=== PATIENT | female | born 1945 | race Caucasian/White ===

== ENCOUNTER 2019-12-23 01:10 | Outpatient (CLI) | payer MEDICARE, BC, SELFPAY ==
[2019-12-23 16:30] LABS: SARS-CoV-2 RNA PCR Negative
== END 2019-12-23 01:11 | disposition home or self-care (01) ==
LOC: ANHCOVIDDT 01:10
PROVIDERS: PCP Family Medicine; Visit Provider Internal Medicine Gastroenterology
DX: Z01.812 Encounter for preprocedural laboratory examination (principal); Z20.828 Contact with and (suspected) exposure to other viral communicable diseases
CPT/HCPCS: 87635; C9803; U0003

== ENCOUNTER 2019-12-26 02:35 | Day surgery (SDC) | payer MEDICARE, BC, SELFPAY ==
[2019-12-19 14:18] VITALS: BMI 34.0
[2019-12-26 06:55] VITALS: BP 141/76; PULSE 67; RESP 18; TEMP 36.2; O2SAT 98; BMI 33.7
[2019-12-26 07:05] LABS: Glucose Point of Care 127 (65-105)
[2019-12-26] MEDS: LACTATED RINGERS 1,000 ML 150 ML IV CONT (07:09)
--- NOTE | 2019-12-26 07:26 | WPDANESEPPF ---
Anes - Initial Pre Proc Eval Procedure: Operation Date: 12/26/19 08:00 Proposed Procedures p Screening Colonoscopy - Maximino Thomson MD Date/Time: 12/26/19 07:26 Surgeon: Maximino Thomson MD Pre Op Diagnosis: Hx Colon Polyps Patient Data Age: 74 Gender: F Height: 5 ft 3 in Weight: 86.3 kg Last Vital Signs Temp 97.1 F L 12/26/19 06:55 Pulse 67 12/26/19 06:55 Resp 18 12/26/19 06:55 BP 141/76 H 12/26/19 06:55 Pulse Ox 98 12/26/19 06:55 Allergies Allergy/AdvReac Type Severity Reaction Status Date / Time neomycin Allergy Intermediate Rash Verified 12/26/19 06:52 atorvastatin Allergy Unknown Unknown Verified 12/26/19 06:52 bacitracin Allergy Unknown Rash Verified 12/26/19 06:52 ezetimibe Allergy Unknown Unknown Verified 12/26/19 06:52 polymyxin B Allergy Unknown Rash Verified 12/26/19 06:52 venlafaxine Allergy Unknown Unknown Verified 12/26/19 06:52 Home Medications Medication Instructions Recorded Confirmed Type fluticasone furoate 100 1 inhalation INHALATION DAILY #90 06/27/19 12/19/19 Rx mcg/actuation blister powder for each inhalation propranolol 60 mg capsule,24 120 mg PO DAILY #180 cap 06/27/19 12/19/19 Rx hr,extended release montelukast 10 mg tablet 10 mg PO DAILY #30 tablet 08/16/19 12/19/19 Rx pantoprazole 40 mg tablet,delayed 40 mg PO QAM #90 tablet 11/17/19 12/19/19 Rx release albuterol sulfate 1 inh INHALATION QID PRN 12/19/19 12/19/19 History aspirin [Adult Low Dose Aspirin] 81 mg PO DAILY 12/19/19 12/19/19 History dapagliflozin [Farxiga] 5 mg PO DAILY 12/19/19 12/19/19 History lisinopril 2.5 mg PO DAILY 12/19/19 12/19/19 History metformin 500 mg PO DAILY 12/19/19 12/19/19 History pravastatin 80 mg PO DAILY 12/19/19 12/19/19 History Laboratory Tests 12/26/19 07:01 POC Capillary Glucose 127 mg/dl H mg/dl (65-105) Patient hx anesthesia problems: none Family hx anesthesia problems: none PMFSH Past Medical History Medical History (Updated 12/26/19 @ 07:26 by Rob Valdes MD) Atherosclerotic heart disease of [place] coronary artery with angina pectoris Chronic obstructive pulmonary disease, unspecified Diabetes Hyperlipidemia Family History Family History (Updated 10/19/15 @ 23:19 by DOCTOR UNKNOWN) Sibling Family history of premature coronary heart disease Hypertension Family history of diabetes mellitus in first degree relative Grandparent Carcinoma of colon Diabetes mellitus Other Family history of malignant neoplasm of breast Social History Social History Smoking packs per day: 1 Smoking cigarettes per day: 20.0 Years smoked: 21 Smoking pack-years: 21.00 Smoking status: Never smoker Tobacco type: cigarettes Second hand tobacco smoke exposure: No Alcohol intake: never Substance use: former Living arrangements: alone Gender identity (if verbalized by the patient): Female Spiritual care concerns: No Anes - Eval Final PreProcedure Day of Procedure 12/26/19 07:26 Patient weight: obese Heart: regular rate and rhythm Lungs: clear to auscultation Airway: Mallampati scale class II Neurological: alert and oriented Last oral intake: >/= 8 hours ASA classification: III Emergent: no Anesthetic plan: proceed Anesthesia type and monitoring: general GIVS and standard monitoring Informed Consent: The patient's anesthetic plan and its attendant risks and benefits were discussed with the patient/family/POA. Questions were solicited and answers provided to the satisfaction of the patient/family/POA.
--- NOTE | 2019-12-26 07:51 | WPDGICN ---
Assessment and Plan Assessment and plan (1) History of colon polyps: Code(s): Z86.010 - Personal history of colonic polyps Status: Acute Assessment and Plan: Patient is a colon polyps in several prior endoscopies. Most recent exam was 5 years ago. She does have a grandparents to had colon cancer. Plan is for colonoscopy now. Follow-up will be determined by findings at time of endoscopy. GI Consult Note Consult date/time: 12/26/19 07:51 HPI: Amparo Palacios is a 74 year old female Seen in evaluation at the request of Dr. Toney Davis. Patient presents for follow-up colonoscopy. She has had colon polyps in several instances in the past. Last colonoscopy was 5 years ago. Her current weight appetite bowel movements are normal. She denies abdominal pain. Family history is significant that her grandmother had colon cancer. Patient currently denies any blood in her stools. Her weight has remained stable. She denies abdominal pain. Review of Systems Review of Systems: All systems reviewed & are unremarkable except as noted in HPI and below PMFSH Past Medical History Medical History Atherosclerotic heart disease of [place] coronary artery with angina pectoris Chronic obstructive pulmonary disease, unspecified Diabetes Hyperlipidemia Family History Family History (Updated 10/19/15 @ 23:19 by DOCTOR UNKNOWN) Sibling Family history of premature coronary heart disease Hypertension Family history of diabetes mellitus in first degree relative Grandparent Carcinoma of colon Diabetes mellitus Other Family history of malignant neoplasm of breast Social History Social History Smoking packs per day: 1 Smoking cigarettes per day: 20.0 Years smoked: 21 Smoking pack-years: 21.00 Smoking status: Never smoker Tobacco type: cigarettes Second hand tobacco smoke exposure: No Alcohol intake: never Substance use: former Living arrangements: alone Gender identity (if verbalized by the patient): Female Spiritual care concerns: No Meds Home Medications and Allergies Home Medications Medication Instructions Recorded Confirmed Type fluticasone furoate 100 1 inhalation INHALATION DAILY #90 06/27/19 12/19/19 Rx mcg/actuation blister powder for each inhalation propranolol 60 mg capsule,24 120 mg PO DAILY #180 cap 06/27/19 12/19/19 Rx hr,extended release montelukast 10 mg tablet 10 mg PO DAILY #30 tablet 08/16/19 12/19/19 Rx pantoprazole 40 mg tablet,delayed 40 mg PO QAM #90 tablet 11/17/19 12/19/19 Rx release albuterol sulfate 1 inh INHALATION QID PRN 12/19/19 12/19/19 History aspirin [Adult Low Dose Aspirin] 81 mg PO DAILY 12/19/19 12/19/19 History dapagliflozin [Farxiga] 5 mg PO DAILY 12/19/19 12/19/19 History lisinopril 2.5 mg PO DAILY 12/19/19 12/19/19 History metformin 500 mg PO DAILY 12/19/19 12/19/19 History pravastatin 80 mg PO DAILY 12/19/19 12/19/19 History Allergies Allergy/AdvReac Type Severity Reaction Status Date / Time neomycin Allergy Intermediate Rash Verified 12/26/19 06:52 atorvastatin Allergy Unknown Unknown Verified 12/26/19 06:52 bacitracin Allergy Unknown Rash Verified 12/26/19 06:52 ezetimibe Allergy Unknown Unknown Verified 12/26/19 06:52 polymyxin B Allergy Unknown Rash Verified 12/26/19 06:52 venlafaxine Allergy Unknown Unknown Verified 12/26/19 06:52 Vital Signs Vital Signs - 24 hr 12/26/19 06:55 Temperature 97.1 F L Pulse Rate 67 Respiratory Rate 18 Blood Pressure 141/76 H Pulse Oximetry 98 Exam Narrative: Exam Narrative: Physical exam reveals Vital Signs to be stable. HEENT exam unremarkable. She is anicteric. Lungs are clear to auscultation and percussion. Heart is without murmur or extra sounds. Abdominal exam bowel sounds are present soft nontender with no organomegaly. Digital external rectal exam is normal.
[2019-12-26 08:28] VITALS: BP 103/56; PULSE 74; RESP 17; O2SAT 99
[2019-12-26 08:38] VITALS: BP 120/75; PULSE 70; RESP 13; O2SAT 99
[2019-12-26 08:48] VITALS: BP 119/61; PULSE 60; RESP 26; O2SAT 99
== END 2019-12-26 09:06 | disposition home or self-care (01) ==
PROVIDERS: PCP Family Medicine; Visit Provider Internal Medicine Gastroenterology
PROC: 0DJD8ZZ Inspection of Lower Intestinal Tract, Via Natural or Artificial Opening Endoscopic (ICD-10-PCS; CPT 45378; principal; 2019-12-26 08:00)
DX: Z12.11 Encounter for screening for malignant neoplasm of colon (principal); K64.8 Other hemorrhoids; K57.30 Diverticulosis of large intestine without perforation or abscess without bleeding; I25.119 Atherosclerotic heart disease of native coronary artery with unspecified angina pectoris; J44.9 Chronic obstructive pulmonary disease, unspecified; E11.9 Type 2 diabetes mellitus without complications; E78.5 Hyperlipidemia, unspecified; E66.9 Obesity, unspecified; Z68.33 Body mass index [BMI] 33.0-33.9, adult; D12.2 Benign neoplasm of ascending colon; Z80.0 Family history of malignant neoplasm of digestive organs; Z86.010 Personal history of colon polyps; Z87.891 Personal history of nicotine dependence
CPT/HCPCS: 45385; 88305; J2704; J7120

== ENCOUNTER 2020-01-09 17:36 | Outpatient (CLI) | payer MEDICARE, BC, SELFPAY ==
--- NOTE | ~2020-01-09 | CT_ITS ---
EXAMINATION: CT chest wo con EXAM DATE: 01/09/2020 18:12 INDICATION: R91.8 Other nonspecific abnormal finding of lung field. Abnormal chest x-ray. TECHNIQUE: Spiral CT of the chest without contrast. Axial, coronal and sagittal images were reviewe d. Coronal maximum intensity pixel images of chest reviewed. The dose-length product (DLP) for this examination was 242.10 mGy-cm. The exposure was tailored according to patient size (auto mA exposur e control), and iterative reconstruction (ASIR) was used as additional dose reduction technique. Comp arison is made to prior examination from 12/01/2018. FINDINGS: Several small right upper lobe nodular again identified, some unchanged. 2 in the perihila r region have slightly larger groundglass halo, now measuring about 5 mm. Still most likely postinfec tious. Additional 1 year follow-up low-dose chest CT. There is a goiter. There is mild emphysema. The re are no pleural or pericardial effusions. Tracheobronchial tree is patent. There is no mediasti nal, hilar or axillary lymphadenopathy. There is no pneumothorax. Heart normal in size. There is small sliding gastroesophageal hiatal hernia. There is hepatic steatosis. There is mild thoracic s pondylosis without osteoblastic or osteolytic lesions identified. IMPRESSION: 1. Several right upper lobe subcentimeter nodules, 2 of which have slightly larger groundglass halo. Probably postinfectious. Recommend additional one-year follow-up. 2. Mild emphysema. 3. Small hiatal hernia. 4. Hepatic steatosis. 5. Goiter. Reviewed, dictated and finalized at location [facility]. IMPRESSION: 1. Several right upper lobe subcentimeter nodules, 2 of which have slightly la rger groundglass halo. Probably postinfectious. Recommend additional one-year f ollow-up. 2. Mild emphysema. 3. Small hiatal hernia. 4. Hepatic steatosis. 5. Goiter.
== END 2020-01-09 17:37 | disposition home or self-care (01) ==
PROVIDERS: PCP Family Medicine; Visit Provider Physician Assistant Medical
DX: R91.8 Other nonspecific abnormal finding of lung field (principal); J43.9 Emphysema, unspecified; K44.9 Diaphragmatic hernia without obstruction or gangrene; K76.0 Fatty (change of) liver, not elsewhere classified; E04.9 Nontoxic goiter, unspecified
CPT/HCPCS: 71250

== ENCOUNTER → 2022-07-23 13:36 | Outpatient (CLI) | payer MEDICARE, BC, SELFPAY ==
--- NOTE | ~2022-07-23 | XR_ITS ---
EXAMINATION: XR knee RT min 4V DATE: 07/23/2022 14:03 INDICATION: Right knee injury. TECHNIQUE: 4 views of right knee including standing views were obtained. COMPARISON: None. FINDINGS: Bone alignment is normal. No fracture. There is moderate osteoarthritis of medial compartme nt and mild osteoarthritis of lateral and patellofemoral compartments. No knee joint effusion. IMPRESSION: 1. Moderate right knee osteoarthritis. Reviewed, dictated and finalized at location [facility].
== END ==
PROVIDERS: PCP Family Medicine; Visit Provider Nurse Practitioner Family
DX: S89.90XA Unspecified injury of unspecified lower leg, initial encounter (principal); X58.XXXA Exposure to other specified factors, initial encounter; M17.11 Unilateral primary osteoarthritis, right knee
CPT/HCPCS: 73564

== ENCOUNTER 2022-08-25 12:47 | Emergency (ER) | payer MEDICARE, BC, SELFPAY ==
[2022-08-25] VITALS (13 sets, daily range): BP systolic 90–121; BP diastolic 51–68; PULSE 86–95; RESP 18–22; TEMP 37.2; O2SAT 93–95
[2022-08-25 14:06] LABS: Basophils Percent Auto 0.3 % (0.2-1.2); Eosinophils Percent Auto 0.1 % (0-4.4); Hemoglobin 13.2 g/dL (12.0-15.0); Immature Granulocyte Absolute 0.02 K/mm3 (0.00-0.031); Immature Granulocyte Percent A 0.2 % (0-0.5); Lymphocytes Absolute Auto 0.94 K/mm3 (0.9-3.2); Lymphocytes Percent Auto 9.4 % (18.3-44.2); Mean Corpuscular Volume 90.9 fl (80-100); Mean Platelet Volume 9.3 fl (7.4-10.4); Monocytes Absolute Auto 0.8 K/mm3 (0.1-0.6); Monocytes Percent Auto 7.5 % (2.6-8.5); Neutrophils Absolute Auto 8.3 K/mm3 (1.3-6.7); Neutrophils Percent Auto 82.5 % (45.5-73.1); Platelet Count Result 191 k/mm3 (150-375); Red Cell Distribution Width 13.4 % (11.5-14.5)
[2022-08-25 14:22] LABS: Appearance Urine Cloudy (Clear); Bacteria Urine 2+ /hpf; Bilirubin Urine Negative (Negative); Blood Urine Negative (Negative); Color Urine Dark Yellow (Yellow); Glucose Urine UA Negative (Negative); Ketones Urine 2+ mg/dL (Negative); Leukocyte Esterase Ur 1+ LEU/UL (Negative); Need Manual Microscopic Reviewed; Nitrate Urine Negative (Negative); Protein Urine 1+ mg/dL (Negative); RBC Urine 0-2 /hpf (0-2); Specific Grav Ur 1.022 (1.001-1.035); Squamous Epithelial Cell Urine Moderate /hpf (Few); WBC Urine 21-50 /hpf; pH Urine 5.5 (5.0-9.0)
[2022-08-25 14:25] LABS: Add Urine Microscopic? YES
[2022-08-25 14:25] LABS: Alanine Aminotransferase 28 U/L (6-35); Albumin Level 4.1 g/dL (3.5-5.1); Alkaline Phosphatase 76 U/L (38-126); Anion Gap 7 mmol/L (8-16); Aspartate Amino Transferase 32 U/L (14-36); Bilirubin,Total 0.8 mg/dL (0.2-1.3); Blood Urea Nitrogen 12 mg/dL (7-17); Carbon Dioxide 28 mmol/L (22-30); Chloride 98 mmol/L (98-107); Estimated CRCL calculation 65 ml/min; Estimated Glomerular Filt Rate > 60; Glucose 119 mg/dL (65-110); Lipase 85 U/L (23-300); Potassium 3.6 mmol/L (3.4-5.0); Sodium 133 mmol/L (137-145)
--- NOTE | 2022-08-25 15:59 | ED.GENADULT ---
HPI - General Adult General Chief complaint: Nausea/Vomiting/Diarrhea Stated complaint: n/v/d after international travel Time Seen by Provider: 08/25/22 15:27 History of Present Illness HPI narrative: 76-year-old female presented to the emergency department for evaluation of nausea vomiting diarrhea. Patient recently returned from [place]. Patient states that she traveled that Thursday did not drink very much fluid. Patient started having the symptoms of nausea vomiting diarrhea on Thursday. Patient states she does not have any associate abdominal pain. Patient does report intermittent headache. Patient reports watery stool with no blood. Patient has had 2 episodes of emesis without blood. Patient does have prior history of cholecystectomy patient states she does have history of diverticular disease Related Data Home Medications Medication Instructions Recorded Confirmed aspirin 81 mg tablet,delayed 81 mg PO DAILY 12/19/19 08/11/22 release (Adult Low Dose Aspirin) lisinopril 5 mg tablet 2.5 mg PO DAILY 12/19/19 08/11/22 metformin 500 mg tablet 500 mg PO DAILY 12/19/19 08/11/22 glimepiride 2 mg tablet 2 mg PO QAM 09/09/21 08/11/22 semaglutide 0.25 mg or 0.5 mg (2 0.5 mg subcut WEEKLY 08/11/22 08/11/22 mg/3 mL) subcutaneous pen injector (Ozempic) Allergies Allergy/AdvReac Type Severity Reaction Status Date / Time neomycin Allergy Intermediate Rash Verified 08/25/22 12:48 atorvastatin Allergy Unknown Unknown Verified 08/25/22 12:48 bacitracin Allergy Unknown Rash Verified 08/25/22 12:48 ezetimibe Allergy Unknown Unknown Verified 08/25/22 12:48 polymyxin B Allergy Unknown Rash Verified 08/25/22 12:48 venlafaxine Allergy Unknown Unknown Verified 08/25/22 12:48 Review of Systems Review of Systems: All systems reviewed & are unremarkable except as noted in HPI and below PMFSH Past Medical History Medical History Atherosclerotic heart disease of [place] coronary artery with angina pectoris BMI 32.0-32.9,adult BMI 33.0-33.9,adult Chronic obstructive pulmonary disease, unspecified Diabetes Hyperlipidemia Family History Family History Sibling Family history of premature coronary heart disease Hypertension Family history of diabetes mellitus in first degree relative Grandparent Carcinoma of colon Diabetes mellitus Father Acute myocardial infarction Mother No problems noted. 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 HEAD: normocephalic, atraumatic. EYES: PERRLA/EOMI, conjunctivae clear. NOSE: Normal no drainage NECK: Supple. No adenopathy, no masses. RESPIRATORY: Airway patent, respirations nonlabored. Clear to auscultation bilaterally, no rales, rhonchi, wheezing. CARDIOVASCULAR: Regular rate and rhythm without murmurs rubs or gallops. ABDOMINAL: Soft, nontender, nondistended, normal bowel sounds MUSCULOSKELETAL: Moves all extremities. Strength/ROM intact, No edema, No calf tenderness. NEURO: Alert. Cranial nerves II through XII intact. Grossly intact SKIN: Warm, dry. Normal Color C
[2022-08-25] MEDS: ONDANSETRON INJ 4 MG/2 ML VIAL IV PUSH (16:04)
[2022-08-25] MEDS: SODIUM CHLORIDE 0.9% IV 1,000 ML 999 ML IV CONT (16:05)
[2022-08-25 16:27] LABS: Influenza A QL RT-PCR Negative (Negative); Influenza B QL RT-PCR Negative (Negative); RSV RNA, RT-PCR Negative (Negative); SARS-CoV-2 RNA PCR Negative (Negative)
== END 2022-08-25 18:12 | disposition home or self-care (01) ==
PROVIDERS: Emergency Medicine; Emergency Provider Emergency Medicine; PCP Family Medicine
DX: R11.2 Nausea with vomiting, unspecified (principal); R19.7 Diarrhea, unspecified; E11.9 Type 2 diabetes mellitus without complications; I25.10 Atherosclerotic heart disease of native coronary artery without angina pectoris; J44.9 Chronic obstructive pulmonary disease, unspecified; E78.5 Hyperlipidemia, unspecified; Z87.891 Personal history of nicotine dependence; Z79.899 Other long term (current) drug therapy; Z79.84 Long term (current) use of oral hypoglycemic drugs; Z79.82 Long term (current) use of aspirin; Z20.822 Contact with and (suspected) exposure to COVID-19
CPT/HCPCS: 36415; 80053; 81001; 83690; 85025; 87086; 87088; 87637; 96361; 96374; 99284; J2405; J7030

== ENCOUNTER → 2022-10-06 08:14 | Outpatient (CLI) | payer MEDICARE, BC, SELFPAY ==
--- NOTE | ~2022-10-06 | CT_ITS ---
EXAMINATION: CT chest high resolution w con DATE: 10/06/2022 08:44 INDICATION: Solitary pulmonary nodule TECHNIQUE: Computed tomography (CT) of the chest was performed with 75 CC Omnipaque 350 intravenous c ontrast. Automated exposure control and iterative reconstruction technique were employed. Exam dose: 327.35 mGy-cm total exam DLP. COMPARISON: 01/09/2020 CT chest FINDINGS: There are moderate emphysematous changes of the lungs. There are 2 right perihilar right upper lobe irregular soft tissue masses, one measuring up to 1.9 cm , the other approximately 2.1 x 2.5 cm. These are most likely a malignant. Little interval change of a 2 mm nodular density in the superior segment of the right lower lobe (ser ies 4 image 34) compared to 01/09/2020. Minimal right hilar ramon prominence. Mild prominence of the subcarinal lymph nodes. No enlarged medi astinal lymph nodes are noted otherwise. Consider PET/CT imaging for further evaluation. Heart size is normal. There is prominent calcification of the left anterior descending coronary arter y. No pericardial or pleural effusion. There is atherosclerotic calcification but normal caliber of the thoracic aorta. Right thyroid goiter. Small sliding hiatal hernia. Included portions of the adrenal glands are normal. Status post cholecystectomy. Hepatic steatosis. Diverticulosis of the colon. No suspicious osteolytic or osteoblastic lesions are noted. There is degenerative change of the cervi billy, thoracic and lumbar spine. IMPRESSION: 2 and 2.5 cm right perihilar right upper lobe lung mass since, likely due to primary aliza g cancer; mild right hilar and subcarinal lymph node prominence may be metastatic; consider PET/CT im aging Moderate emphysema Right thyroid goiter Small sliding hiatal hernia Hepatic steatosis Status post cholecystectomy Colon diverticulosis Dr. Martinez telephoned the CT findings of right upper lobe perihilar lung masses and possible right tony r and subcarinal metastatic adenopathy and consideration for PET CT imaging on 10/06/2022 at 0939 hour s to Irish Irvin. Reviewed, dictated and finalized at [facility]. Reviewed, dictated and finalized at location B. IMPRESSION: 2 and 2.5 cm right perihilar right upper lobe lung mass since, lik gopi due to primary lung cancer; mild right hilar and subcarinal lymph node prom inence may be metastatic; consider PET/CT imaging Moderate emphysema Right thyroid goiter Small sliding hiatal hernia Hepatic steatosis Status post cholecystectomy Colon diverticulosis Dr. Martinez telephoned the CT findings of right upper lobe perihilar lung masses a nd possible right hilar and subcarinal metastatic adenopathy and consideration for PET CT imaging on 10/06/2022 at 0939 hours to Irish Irvin.
[2022-10-06 08:35] LABS: Estimated Glomerular Filt Rate > 60
== END ==
PROVIDERS: PCP Family Medicine; Visit Provider Physician Assistant Medical
DX: R91.1 Solitary pulmonary nodule (principal); R91.8 Other nonspecific abnormal finding of lung field; J43.9 Emphysema, unspecified; E04.1 Nontoxic single thyroid nodule; K76.0 Fatty (change of) liver, not elsewhere classified; K57.30 Diverticulosis of large intestine without perforation or abscess without bleeding
CPT/HCPCS: 71260; Q9967

== ENCOUNTER 2022-10-23 07:36 | Outpatient (CLI) | payer MEDICARE, BC, SELFPAY ==
--- NOTE | ~2022-10-23 | PE_ITS ---
EXAMINATION: PET skull to mid thigh DATE: 10/23/2022 09:32 INDICATION: Lung nodule. TECHNIQUE: 10.037 mCi of 18-fluorodeoxyglucose (18-FDG) was administered i.v. Low dose computed tomog isidoro (CT) images were acquired from the base of the brain to the proximal thighs for attenuation cor rection and anatomic localization. Automated exposure control was employed. Dose-length product (DLP) was 548 mGy-cm. Positron emission tomography (PET) images were acquired in the same distribution. COMPARISON: Chest CT 10/06/2022, , 12/01/18 FINDINGS: Head/neck: There is a 3.8 cm nodule in right thyroid lobe with maximum SUV of 4.6, stable from 9. There are no pathologically enlarged lymph nodes. Chest: There is mild scarring at the lung apices. There is mild emphysema. There is a 2.4 cm nodule i n right upper lobe with maximum SUV of 5.5. No pleural effusion. Cardiomegaly is noted. There are cor onary artery calcifications. No pericardial effusion. Abdomen/pelvis/proximal thighs: There is diffuse hepatic steatosis. There are changes of cholecystect elisa. There is a small sliding hiatal hernia. The spleen, pancreas, and adrenal glands are normal. The re is a 2.3 cm cyst in right kidney. There is a 2 mm stone in left kidney. Aortic atherosclerosis is noted. There is diverticulosis of the colon without evidence of diverticulitis. There are no dilated loops of bowel. There are no pathologically enlarged lymph nodes. There is no free intraperitoneal fl uid. There is severe lumbar spondylosis. IMPRESSION: 1. 2.4 cm nodule in right lung upper lobe with increased activity, consistent with primary bronchogen ic carcinoma. CT-guided biopsy is recommended. 2. Right thyroid nodule with increased activity, stable from 12/01/2018. Consider ultrasound-guided fi ne-needle aspiration. Reviewed, dictated and finalized at location [facility]. IMPRESSION: 1. 2.4 cm nodule in right lung upper lobe with increased activity, consistent w ith primary bronchogenic carcinoma. CT-guided biopsy is recommended. 2. Right thyroid nodule with increased activity, stable from 12/01/2018. [place]ente ultrasound-guided fine-needle aspiration.
[2022-10-23 08:02] LABS: Glucose Point of Care 116 mg/dl (65-105)
== END 2022-10-23 07:37 | disposition home or self-care (01) ==
PROVIDERS: PCP Family Medicine; Visit Provider Physician Assistant Medical
DX: R91.1 Solitary pulmonary nodule (principal); R59.1 Generalized enlarged lymph nodes; E04.1 Nontoxic single thyroid nodule
CPT/HCPCS: 78815; A9552

== ENCOUNTER 2022-11-08 13:38 | Outpatient (CLI) | payer MEDICARE, BC, SELFPAY ==
--- NOTE | ~2022-11-08 | MR_ITS ---
EXAMINATION: MR brain/brain stem wo/w con DATE: 11/08/2022 14:58 INDICATION: Right lung mass. TECHNIQUE: Magnetic resonance imaging (MRI) of the brain and brainstem was performed without and with 15 mL MultiHance intravenous contrast. COMPARISON: None. FINDINGS: There are scattered areas of nonspecific increased T2-weighted signal intensity in the cere bral white matter. There is no intracranial hemorrhage, acute infarction, or abnormal intracranial ma ss lesion. The ventricles are normal in size. There is mild mucosal thickening in the ethmoid sinuses . The mastoid air cells are normal. There are likely changes of ocular lens replacement surgeries. IMPRESSION: 1. No evidence of metastatic disease. 2. Mild nonspecific cerebral white matter disease, which likely represents chronic small vessel ische pascual disease. Reviewed, dictated and finalized at location A. IMPRESSION: 1. No evidence of metastatic disease. 2. Mild nonspecific cerebral white matter disease, which likely represents data technician aura small vessel ischemic disease.
== END 2022-11-08 13:39 | disposition home or self-care (01) ==
PROVIDERS: PCP Family Medicine; Visit Provider Nurse Practitioner Acute Care
DX: R91.8 Other nonspecific abnormal finding of lung field (principal); R93.0 Abnormal findings on diagnostic imaging of skull and head, not elsewhere classified
CPT/HCPCS: 70553; A9577

== ENCOUNTER 2024-07-26 00:29 | Day surgery (SDC) | payer MEDICARE, BC, SELFPAY ==
[2024-07-13 12:01] VITALS: BMI 31.8
--- OUTSIDE RECORDS SUMMARY | 2024-07-26 00:32 | XMS_ITS | Clinical Summary ---
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 Name Role Phone Toney Davis MD Primary Care Provider [phone] Marlon Chong MD Unavailable [phone] Allergies Active Allergy Reactions Criticality Noted Date Comments Bacitracin Other (See comments) Low Eye redness/irritation Benzalkonium Other (See comments) Low Eye redness/irritation Dapagliflozin Other (See comments) Low 04/24/2022 Recurrent vulvovaginitis Gramicidin D Unknown Low Hydrocortisone Other (See comments) Low Eye redness/irritation Neomycin Blisters High Djvlbjel-Vdjaexzrau-Dsf ymyxin Blisters High Polymyxin B Blisters High Skin Cleanser Medications omeprazole (PriLOSEC) 20 mg capsule Take 2 capsules (40 mg total) by mouth daily 05/19/19 21 Active aspirin 81 mg enteric coated tablet Take 1 tablet (81 mg total) by mouth daily Active calcium carbonate (OS-JOSE) 1,250 mg (500 mg elemental) tablet Take 1 tablet (1,250 mg total) by mouth daily Active meloxicam (MOBIC) 15 mg tablet 11/02/19 23 Active montelukast (SINGULAIR) 10 mg tablet Take 1 tablet (10 mg total) by mouth nightly 30 tablet 12/06/19 23 Active Additional Information Patient not taking.Reported on 07/21/2024 OneTouch Verio Flex meter misc 1 each daily Dx:E11.65 not insulin dependent librado 02/26/23 1 each 07/29/19 24 Active blood glucose diagnostic (OneTouch Verio test strips) strip 1 each by other route daily Dx:E11.65 not insulin dependent librado 02/26/23 100 strip 2 07/29/19 24 Active OneTouch Delica Plus Lancet 33 gauge misc 1 each daily Dx:E11.65 not insulin dependent ,ov 02/26/23 100 each 2 07/29/19 24 Active semaglutide (Ozempic) 0.25 mg or 0.5 mg (2 mg/3 mL) pen injector injectionIndic ations:type 2 diabetes mellitus Inject 0.5 mg under the skin once a week 9 mL 3 09/22/19 24 025 Active lisinopriL (PRINIVIL,ZEST RIL) 2.5 mg tabletIndicati ons:Type 2 diabetes mellitus with hyperglycemia, without long-term current use of insulin ([facility]) Take 1 tablet by mouth once daily 90 tablet 3 10/12/19 24 Active tiotropium bromide (SPIRIVA RESPIMAT) 2.5 mcg/actuation inhaler Inhale 2 puffs daily 3 each 3 10/28/19 24 Active albuterol HFA (PROVENTIL HFA,VENTOLIN HFA,PROAIR HFA) 90 mcg/actuation inhaler Inhale 2 puffs every 4 (four) hours as needed for wheezing 1 each 11 10/28/19 24 Active rosuvastatin (CRESTOR) 20 mg tablet TAKE 1 TABLET DAILY 90 tablet 3 01/05/20 24 Active glimepiride (AMARYL) 2 mg tabletIndicati ons:Type 2 diabetes mellitus with hyperglycemia, without long-term current use of insulin ([facility]) TAKE 1 TABLET BY MOUTH ONCE DAILY BEFORE BREAKFAST 90 tablet 02/08/20 24 Active nitroglycerin (NITROSTAT) 0.4 mg SL tablet DISSOLVE ONE TABLET UNDER THE TONGUE EVERY 5 MINUTES NEEDED FOR CHEST PAIN. DO NOT EXCEED A TOTAL OF 3 DOSES IN 15 MINUTES 25 tablet 03/01/20 24 Active propranolol LA (INDERAL LA) 60 mg 24 hr capsule TAKE 1 CAPSULE TWICE DAILY 180 capsule 06/09/19 25 Active metFORMIN (GLUCOPHAGE) 500 mg tabletIndicati ons:Type 2 diabetes mellitus with hyperglycemia, without long-term current use of insulin ([facility]) Take 1 tablet by mouth once daily with breakfast 90 tablet 07/08/19 Active metFORMIN (GLUCOPHAGE) 500 mg tabletIndicati ons:Type 2 diabetes mellitus with hyperglycemia, without long-term current use of insulin ([facility]) Take 1 tablet by mouth once daily with breakfast 90 tablet 04/11/19 25 025 Discontinued Active Problems Problem Noted Date Diagnosed Date Lung mass 10/21/2022 Lesion of left lower eyelid 07/10/2022 Assessment & Plan (09/06/2022 4:51 PM CDT): Risks, benefits and alternatives were discussed. Risks included but were not limited to pain, bleeding, scarring, recurrence, and possible need for additional procedures. Following this discussion, the patient wishes to proceed with left eyelid lesion excision. I suspect this represents a seborrheic keratosis. This was performed today without any complications. They will follow-up as needed. Assessment & Plan (07/10/2022 5:20 PM CDT): appearance most consistent with seborrheic keratoses, recommend evaluation oculoplastics Refraction disorder 05/15/2020 Assessment & Plan (05/15/2020 2:04 PM [employer]): Minimal d Rx - demonstrated with trial frame, no significant improvement. Cont without glasses. Multinodular goiter 01/04/2019 Assessment & Plan (09/22/2023 2:49 PM CDT): Chronic problem. US thyroid completed 10/2022 w/no changes. TFTs completed 10/2022 also. Assessment & Plan (02/26/2023 10:47 AM [employer]): Chronic problem. US thyroid completed 10/2022 w/no changes. TFTs completed 10/2022 also. Assessment & Plan (11/04/2022 12:59 PM CDT): Thyroid ultrasound done today ( See report ) There are no significant changes in the appearance and size of the right dominant nodule. FNA negative past, there is no need for further intervention. Will update TSH and free T4 Assessment & Plan (09/27/2019 10:29 AM CDT): Repeat ultrasound during next OV Assessment & Plan (01/04/2019 11:01 AM CDT): With a dominant right lobe nodule. Will get results of TFTs new Given the size of the nodule, there is indication for an FNA biopsy. This was performed If negative we will continue to observe Otherwise may need surgical consultation Dyspnea on exertion 12/06/2018 Assessment & Plan (12/03/2020 1:40 PM CDT): She is not really noticing exertional dyspnea so much (she had mentioned it last year). The sensation she describes when she is in bed at night may represent air hunger. She is going to keep an eye on it and let me know if it changes or if she experiences is during the day. Assessment & Plan (12/06/2018 10:39 AM CDT): This has been going on for a couple of months. It has not significantly improved with antibiotics. Her primary care physician is concerned about possibility of congestive heart failure. Also need to rule out angina equivalent dyspnea. Will obtain a stress echo with echo Doppler Glaucoma suspect of both eyes 05/11/2018 Assessment & Plan (05/03/2024 1:37 PM [employer]): Based on CDR Normal intraocular pressure (IOP) Low risk at this time Monitor Assessment & Plan (11/25/2023 4:56 PM CDT): Based on CDR, large myopic disks +Fhx (father) NTG suspect, normal IOPs Assessment & Plan (05/15/2020 2:03 PM [employer]HIP): Low risk, +anomolous, myopic disks both eyes (OU). OCT and [place] visual field (HVF) relatively stable. Low IOPs.Pt ed. Monitor. Assessment & Plan (05/11/2018 11:53 AM [employer]NSHIP): Full HVF. Large CDR, previously stable OCTs. Great IOPs off drops. OK to monitor off drops, yearly DFEx/HVF. Diabetes mellitus type 2 without retinopathy Assessment & Plan (05/03/2024 1:37 PM [employer]): Annual DFEx (11/2024) Assessment & Plan (11/25/2023 4:56 PM CDT): Pt ed. Stressed BG control (HbA1C<7) to reduce the risk for diabetic ocular complications. Lab Results Component Value Date HGBA1C 6.2 09/22/2023 Assessment & Plan (07/10/2022 11:42 AM CDT): Pt ed. Stressed BG control (HbA1C<7) to reduce the risk for diabetic ocular complications. Lab Results Component Value Date HGBA1C 6.9 04/24/2022 Assessment & Plan (05/15/2020 2:03 PM [employer]): Pt ed. Stressed BG control (HbA1C<7) to reduce the risk for diabetic ocular complications. Lab Results Component Value Date HGBA1C 7.3 09/27/2019 Assessment & Plan (05/11/2018 11:54 AM [employer]): Annual DFEx next due 04/2019. Emphasized good BG control. Last A1C near 7.0 per pt. Pseudophakia of both eyes 05/11/2018 Overview (05/15/2020): MFL IOLs OU Assessment & Plan (05/03/2024 1:37 PM [employer]): Patient was educated on the intraocular lens (IOL) status. Follow. Assessment & Plan (11/25/2023 4:55 PM CDT): Patient was educated on the intraocular lens (IOL) status. Follow. Release Rx for DVO glasses Assessment & Plan (07/10/2022 5:19 PM CDT): excellent unaided vision with multifocal IOL Assessment & Plan (05/15/2020 2:04 PM [employer]): Pt ed on intraocular lens (IOL) status. Follow. Hyperlipidemia associated with type 2 diabetes danni kevinnorth 11/24/2017 Assessment & Plan (09/22/2023 2:49 PM CDT): Chronic problem. LDL at goal on current Rosuvastatin 20mg. Last lipid panel: 01/22/23 LDL=29, PE=376. Assessment & Plan (02/26/2023 10:18 AM [employer]NSHIP): Chronic problem. LDL at goal on current Rosuvastatin 20mg. Last lipid panel: 01/22/23 LDL=29, VW=043. Assessment & Plan (11/04/2022 12:53 PM CDT): Chronic, well controlled Low fat Low cholesterol diet Exercise Continue statin therapy with rosuvastatin Assessment & Plan (04/24/2022 10:24 AM [employer] INTERNSHIP): Chronic , well controlled Continue Rosuvastatin Assessment & Plan (01/09/2022 10:07 AM CDT): Chronic problem. On statin therapy, no changes. Assessment & Plan (09/12/2021 1:13 PM CDT): Chronic problem. On statin therapy, no changes. Assessment & Plan (05/07/2021 3:30 PM [employer]): Chronic, well controlled Continue current meds Assessment & Plan (10/23/2020 11:08 AM CDT): Goal of treatment , LDL cholesterol less than 100 ( less than 70 in patients with history of heart attacks and / or strokes ) NonHDL cholesterol ( total cholesterol minus HDL cholesterol ) goal less than 130 ( less than 100 in patients with history of heart attacks and / or strokes ) Low cholesterol, low fat diet was discussed and advised. Daily exercise Continue statin therapy with Pravastatin Assessment & Plan (05/31/2020 4:06 PM [employer]): Goal of treatment , LDL cholesterol less than 100 ( less than 70 in patients with history of heart attacks and / or strokes ) NonHDL cholesterol ( total cholesterol minus HDL cholesterol ) goal less than 130 ( less than 100 in patients with history of heart attacks and / or strokes ) Low cholesterol, low fat diet was discussed and advised. Daily exercise On statin therapy with Pravachol Assessment & Plan (09/27/2019 10:29 AM CDT): Goal of treatment , LDL cholesterol less than 100 ( less than 70 in patients with history of heart attacks and / or strokes ) NonHDL cholesterol ( total cholesterol minus HDL cholesterol ) goal less than 130 ( less than 100 in patients with history of heart attacks and / or strokes ) Low cholesterol, low fat diet was discussed and advised. Daily exercise On statin therapy Assessment & Plan (03/29/2019 9:54 AM NUTRITION INTERNSHIP): Goal of treatment , LDL cholesterol less than 100 ( less than 70 in patients with history of heart attacks and / or strokes ) NonHDL cholesterol ( total cholesterol minus HDL cholesterol ) goal less than 130 ( less than 100 in patients with history of heart attacks and / or strokes ) Low cholesterol, low fat diet was discussed and advised. Daily exercise On statin therapy with Pravachol Assessment & Plan (09/07/2018 1:53 PM CDT): Goal of treatment , LDL cholesterol less than 100 ( less than 70 in patients with history of heart attacks and / or strokes ) NonHDL cholesterol ( total cholesterol minus HDL cholesterol ) goal less than 130 ( less than 100 in patients with history of heart attacks and / or strokes ) Low cholesterol, low fat diet was discussed and advised. Daily exercise On statin therapy with Pravachol Assessment & Plan (12/07/2017 10:31 AM CDT): On chronic lipid lowering therapy with good control. No changes made. Assessment & Plan (11/24/2017 11:12 AM CDT): Goal of treatment , LDL cholesterol less than 100 ( less than 70 in patients with history of heart attacks and / or strokes ) NonHDL cholesterol ( total cholesterol minus HDL cholesterol ) goal less than 130 ( less than 100 in patients with history of heart attacks and / or strokes ) Low cholesterol, low fat diet was discussed and advised. Daily exercise On statin therapy Diabetes mellitus 01/30/2015 Assessment & Plan (11/04/2022 12:52 PM CDT): Hba1c was Lab Results Component Value Date HGBA1C 6.6 11/04/2022 today, indicating adequate DM control Goal Hba1c and blood glucose explained Diet and exercise were advised Prevention and treatment of hyypoglcyemia were discussed with the patient Blood glucose monitoring : 2 x day Adjustment to medications: continue current regimen with metformin and glimeperide Assessment & Plan (04/24/2022 10:24 AM [employer]): Chronic , well controlled, with some weight gain Increase Ozempic 0.5 mg weekly Risk of hypoglycemia with Glimepiride was explained Pt to lower Glimepiride to 1/2 tab if this happens. Continue Metformin Assessment & Plan (09/12/2021 1:14 PM CDT): Chronic problem, improving. She is intolerant of SGLT2i. Overall readings improved on low dose metformin and glimepiride w/o hypoglycemia. No medication changes. States she had labs completed yesterday. Will request results. She's agreeable to doing labs next visit here if we can't get results. Schedule eye exam. Assessment & Plan (05/07/2021 3:30 PM [employer]): Hba1c was Lab Results Component Value Date HGBA1C 8.4 05/07/2021 today, indicating Inadequate DM control Goal Hba1c and blood glucose explained Diet and exercise were advised Prevention and treatment of hyypoglcyemia were discussed with the patient Blood glucose monitoring : 1 x day Adjustment to medications: Restart Glimepiride cotnineu Metformin and farxiga Assessment & Plan (10/23/2020 11:07 AM CDT): Hba1c was Lab Results Component Value Date HGBA1C 7.1 (A) 10/23/2020 today, indicating adequate DM control Goals blood sugars of 120-160 and Hba1c under 7 % was explained. 1800 calorie, consistent carb diet recommended, no more than 3-45 grams of carbs per meal, avoiding concentrated sweet drinks and rapid absorption carbs. 25-45 min daily aerobic and resistance exercise recommended Prevention and treatment of hyypoglcyemia discussed. Blood glucose monitoring with fingers sticks. stop Glimepiride Assessment & Plan (05/31/2020 4:06 PM [employer]): Hba1c was Lab Results Component Value Date HGBA1C 8.1 05/31/2020 today, indicating inadequate DM control Goals blood sugars of 120-160 and Hba1c under 7 % was explained. 1800 calorie, consistent carb diet recommended, no more than 3-45 grams of carbs per meal, avoiding concentrated sweet drinks and rapid absorption carbs. 25-45 min daily aerobic and resistance exercise recommended Prevention and treatment of hyypoglcyemia discussed. Blood glucose monitoring with fingers sticks. Add Glimepiride 1 mg daily Assessment & Plan (09/27/2019 10:28 AM CDT): Hba1c was Lab Results Component Value Date HGBA1C 7.3 09/27/2019 today, indicating suboptimal DM control 1800 calorie, consistent carb diet recommended, no more than 3-45 grams of carbs per meal, avoiding concentrated sweet drinks and rapid absorption carbs. 25-45 min daily aerobic and resistance exercise recommended Medications: Continue Farxiga and Metformin Assessment & Plan (03/29/2019 9:54 AM [employer]): Hba1c was Lab Results Component Value Date HGBA1C 7.1 03/29/2019 today, indicating adequate DM control 1800 calorie, consistent carb diet recommended, no more than 3-45 grams of carbs per meal, avoiding concentrated sweet drinks and rapid absorption carbs. 25-45 min daily aerobic and resistance exercise recommended Medications: Continue Metformin and Farxiga Assessment & Plan (09/07/2018 1:53 PM CDT): Your Hba1c today was: Lab Results Component Value Date HGBA1C 7.3 % 09/07/2018 meaning a 3 month average sugar of : 157 Your goal hba1c is under 7.0 to prevent long-term diabetes complications ( eye , kidney and nerve damage ) . Your goal sugars are in the 90-130 range Exercise recommendations: It is recommended that you do daily aerobic ( walking, riding a bike, swimming ) and resistance exercises ( light weight lifting, resistance band stretching ) for at least 30 minutes , most days of the week. If you can not walk, chair exercises for 10-15 min a day would help tremendously. As little as 15-20 minutes exercise , in one or two sessions a day, is still very helpful to improve your diabetes control . Diet recommendations: Eat small portion meals, trying not to consume more than 1800 calories a day . Try to eat not more than than 2 servings of carbs ( starches ) wiith your meals. Avoid soft drinks, including regular sodas , fruit juices and sweetened tea. Drink water instead. Eat plenty of green and leafy vegetables, including salads. Medications: Take your medications regularly. Setting phone alarms can help . Keep your medication on the kitchen dinner table, by the bedside table or by the sink where they are visible to you. Monitor your sugar levels with finger sticks regularly and keep a log sheet or book. Bring your sugar meter and /or a log book or log sheet to every office visit. Coronary artery disease invo lving [place] coronary artery of [place] heart without angina pectoris 02/28/2014 Overview (06/26/2016): Coronary arteriosclerosis in [place] artery Assessment & Plan (12/03/2020 1:37 PM CDT): No symptoms of myocardial ischemia. Continue aspirin. Assessment & Plan (12/05/2019 11:09 AM CDT): No symptoms suggestive of myocardial ischemia. Normal myocardial perfusion study one year ago. Continue aspirin. Assessment & Plan (12/06/2018 10:40 AM CDT): She is not experiencing chest discomfort but shortness of breath could be an angina equivalent. Assessment & Plan (12/07/2017 10:30 AM CDT): Asymptomatic. Continue aspirin. Assessment & Plan (12/08/2016 10:49 AM CDT): No symptoms of myocardial ischemia. Continue aspirin and risk factor modification. Type 2 diabetes mellitus 06/16/2013 Overview (06/27/2016): DMII WO CMP NT ST UNCNTR Assessment & Plan (09/22/2023 2:48 PM CDT): Chronic problem. A1c at goal & improved form 7.9% 02/26/23 to now 6.2% To stop Glimepiride if blood sugars start to become persistently less than 100-110. Otherwise no changes. Current medications: Metformin 500mg before breakfast Glimepiride 1mg (taking 1/2 tab of 2mg) before breakfast Ozempic 0.5mg weekly UTD on DM eye exam (07/10/22 no DMR). UTD on labs. Strive for regular exercise (30min most days) and diet (get at least 4-5 servings of fruit and veggies daily, avoid processed foods, increase lean protein intake and decrease carb portions as well as fruit juices, regular soda & desserts). Watch carbs and simple sugars. Check the blood sugar 2-3 times/wk. Check the feet daily for skin breakdown and infection. Assessment & Plan (02/26/2023 10:39 AM [employer]): Chronic problem. Not at goal & worsening. A1c duong form 6.6% 10/2022 to now 7.9% Please check blood sugars a few times/wk since you've restarted Ozempic. If your blood sugars are going low after breakfast (from the glimepiride); we will need to stop the glimepiride. Current medications: Metformin 500mg before breakfast Glimepiride 2mg (taking 1/2 tab) before breakfast Ozempic 0.25mg weekly x 4 weeks then increase to 0.5mg weekly UTD on DM eye exam. Will update MA/Cr today. Verified that she uses [facility]. Aware to check results/results letter in [facility]. Will contact by phone if needed. Strive for regular exercise (30min most days) and diet (get at least 4-5 servings of fruit and veggies daily, avoid processed foods, increase lean protein intake and decrease carb portions as well as fruit juices, regular soda & desserts). Watch carbs and simple sugars. Check the blood sugar 2-3 times/wk. Check the feet daily for skin breakdown and infection. Assessment & Plan (01/09/2022 10:09 AM CDT): Chronic problem, fairly stable but with concern about weight gain. Start Ozempic 0.25 mg weekly x 2 weeks, then increase to 0.5 mg weekly. Reviewed AEs. If any low blood sugars stop the glimepiride. Continue metformin. Call if any issues. Update MA/Cr. Assessment & Plan (06/08/2018 11:00 AM CDT): Hba1c was Lab Results Component Value Date HGBA1C 7.9 06/08/2018 today, indicating poor DM control 1800 calorie, consistent carb diet recommended 25-45 min daily aerobic and resistance exercise recommended Prevention and treatment of hyypoglcyemia discussed. Blood glucose monitoring with fingers sticks 1-2 x day . Oral medications: Start Metformin 500 mg daily Assessment & Plan (11/24/2017 11:13 AM CDT): Hba1c was Lab Results Component Value Date HGBA1C 7.1 11/24/2017 today, indicating adequate DM control 1800 calorie, consistent carb diet recommended 30 min daily aerobic and resistance exercise recommended Prevention and treatment of hyypoglcyemia discussed. Blood glucose monitoring with fingers sticks 1-2 x day . Assessment & Plan (05/19/2017 10:09 AM [employer]): Hba1c was 6.9 today, indicating adequate DM control 1800 calorie, consistent carb diet recommended 30 min daily aerobic and resistance exercise recommended Prevention and treatment of hyypoglcyemia discussed. Blood glucose monitoring with fingers sticks 1-2 x day . Assessment & Plan (10/28/2016 11:26 AM CDT): Hba1c was 6.6 today, indicating adequate DM control 1800 calorie, consistent carb diet recommended 30 min daily aerobic and resistance exercise recommended Foot care discused. Prevention and treatment of hyypoglcyemia discussed. Pure hypercholesterolemia 03/09/2013 Overview (06/25/2016): PURE HYPERCHOLESTEROLEM Assessment & Plan (12/03/2020 1:37 PM CDT): Lipids are good, but will switch to rosuvastatin 20 mg daily given her history of coronary artery disease. Assessment & Plan (12/05/2019 11:09 AM CDT): On chronic lipid lowering therapy with good control. No changes made. Assessment & Plan (12/06/2018 10:40 AM CDT): On chronic lipid lowering therapy with good control. No changes made. Assessment & Plan (05/19/2017 10:09 AM [employer]): Goal of treatment , LDL cholesterol less than 100 ( less than 70 in patients with history of heart attacks and / or strokes ) NonHDL cholesterol ( total cholesterol minus HDL cholesterol ) goal less than 130 ( less than 100 in patients with history of heart attacks and / or strokes ) Low cholesterol, low fat diet was discussed and advised. Daily exercise On statin therapy Assessment & Plan (12/08/2016 10:50 AM CDT): On chronic lipid lowering therapy with good control. No changes made. Assessment & Plan (10/28/2016 11:27 AM CDT): Goal of treatment , LDL cholesterol less than 100 ( less than 70 in patients with history of heart attacks and / or strokes ) NonHDL cholesterol goal less than 130 / 100 Lipids at goal. Continue statin therapy Low cholesterol diet, exercise advised. Hypertension associated with diabetes 03/09/2013 Overview (06/27/2016): Hypertension Assessment & Plan (09/22/2023 2:49 PM CDT): Chronic problem. Controlled on current Lisinopril 2.5mg daily, propranolol LA 60mg daily Assessment & Plan (02/26/2023 10:17 AM [employer]): Chronic problem. Controlled on current Lisinopril 2.5mg daily, propranolol LA 60mg daily Assessment & Plan (04/24/2022 10:25 AM [employer]NSHIP): chronic well controlled continue Lisinopril Assessment & Plan (01/09/2022 10:06 AM CDT): Controlled on current medications, no changes. Assessment & Plan (09/12/2021 1:13 PM CDT): Controlled on current medications, no changes. Assessment & Plan (05/07/2021 3:29 PM [employer]): Chronic, well controlled Continue current meds Assessment & Plan (12/03/2020 1:37 PM CDT): Blood pressure is adequately controlled on current regimen. No change was made. Assessment & Plan (10/23/2020 11:07 AM CDT): Goal blood pressure is less than 140/85 Low salt diet was discussed andd recommended The importance of daily aerobic exercise was also emphasized. Continue current meds, including DANISH-I or ARB, e.g. Lisinopril Assessment & Plan (05/31/2020 4:06 PM [employer]NSH[employer]): Goal blood pressure is less than 140/85 Low salt diet was discussed andd recommended The importance of daily aerobic exercise was also emphasized. Continue current meds, including DANISH-I or ARB, e.g. with Lisinopril Assessment & Plan (12/05/2019 11:09 AM CDT): Blood pressure is adequately controlled on current regimen. No change was made. Assessment & Plan (09/27/2019 10:29 AM CDT): Goal blood pressure is less than 140/85 Low salt diet recommended Daily aerobic exercise Continue current meds, including DANISH-I or ARB Assessment & Plan (03/29/2019 9:54 AM NUTRITION INTERNSHIP): Goal blood pressure is less than 140/85 Low salt diet recommended Daily aerobic exercise Continue current meds, including DANISH-I or ARB, Lisinopril Assessment & Plan (12/06/2018 10:40 AM CDT): Blood pressure is adequately controlled on current regimen. No change was made. Assessment & Plan (09/07/2018 1:54 PM CDT): Goal blood pressure is less than 140/85 Low salt diet recommended Daily aerobic exercise Continue current meds, including DANISH-I ,Lisinopril Assessment & Plan (06/08/2018 11:00 AM CDT): Goal blood pressure is less than 140/85 Low salt diet recommended Daily aerobic exercise Continue current meds, including DANISH-I or ARB Check microalbumin cmp Assessment & Plan (12/07/2017 10:30 AM CDT): Blood pressure is adequately controlled on current regimen. No change was made. Assessment & Plan (11/24/2017 11:12 AM CDT): Goal blood pressure is less than 140/85 Low salt diet recommended Daily aerobic exercise Continue current meds, including DANISH-I or ARB Assessment & Plan (05/19/2017 10:09 AM NUTRITION INTERNSHIP): Goal blood pressure is less than 140/85 Low salt diet recommended Daily aerobic exercise Continue current meds, including DANISH-I or ARB Assessment & Plan (12/08/2016 10:50 AM CDT): Blood pressure is adequately controlled on current regimen. No change was made. Assessment & Plan (10/28/2016 11:27 AM CDT): Goal blood pressure is less than 140/85 Low salt diet recommended Daily aerobic exercise Continue current meds, including DANISH-I or ARB Palpitations 10/28/2010 Assessment & Plan (12/05/2019 11:09 AM CDT): Quiescent on propranolol. 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 Cardiology [address] [facility] [address] [id number] Des Charles MD Coronary artery disease involving sh[place] coronary artery of shungnak heart without angina pectoris (Primary Dx); Hyperlipidemia associated with type 2 diabetes mellitus (HCC) 05/03/2024 10:30 AM NUTRITION INTERNSHIP Office Visit [facility] Ophthalmology [address] [facility] [address], [address] [place] [address] Agnes Gupta, OD Glaucoma suspect of both eyes (Primary Dx); Diabetes mellitus type 2 without retinopathy (HCC) 05/03/2024 9:30 AM NUTRITION INTERNSHIP Imaging Exam [facility] Ophthalmology [address] [address] Glaucoma suspect of both eyes 05/02/2024 11:30 AM NUTRITION INTERNSHIP Office Visit [facility] Pulmonary at [address] [place] [address] Alexx Dupree MD Pulmonary nodule (Primary Dx); Centrilobular emphysema (HCC); Chronic cough 04/29/2024 Orders Only [facility] Ophthalmology [address] [facility] [address], [address] [place] [phone] Agnes Gupta, OD Glaucoma suspect of both eyes (Primary Dx) from Last 3 Months Surgical History Surgery Date Site/Laterality Comments OTHER SURGICAL HISTORY cardiac arrhytmia: propranolol CHOLECYSTECTOMY Cholecystectomy OTHER SURGICAL HISTORY D & C TUBAL LIGATION Bilateral tubal ligation OTHER SURGICAL HISTORY 03/23/2012 - 03/22/2013 percutaneous transluminal balloon angioplasty with insertion of stent into coronary artery CATARACT EXTRACTION OD 2003 & OS 2004 Bilateral Multifocal PCIOLs OU (Restor) EYE SURGERY 03/23/2005 - 03/22/2006 Bilateral s/p LASEK OU (Dr Leal) Medical History Medical History Date Comments Hx Other Medical cardiac arrhytm ia Gastroesophageal reflux disease GERD Hx Other Medical Claustrophobic; Comments: C 02/22/2014 - Glaucoma Glaucoma Suspect (Large CDR); No Current Topical Med Use Diabetes mellitus (HCC) Dx'd Approx 2014 T2 NIDD M Family History Medical History Relation Name Comments Diabetes Brother Heart disease Brother Heart attack Father Relation Name Status Comments Brother Father Mother Social History Tobacco Use Types Packs/Day Years Used Date Smoking Tobacco: Former Cigarettes 1 25 1 968 - 1992 Smokeless Tobacco: Former Tobacco Cessation:Counseling Given: Not Answered Alcohol Use Standard Drinks/Week Comments Yes 0 (1 standard drink = 0.6 oz pur e alcohol) AUDIT-C Answer Date Recorded Q1: How often do you have a drink containing alc ohol? Never 11/20/2022 Q2: How many drinks containi ng alcohol do you have on a typical day when you are drinking? 1 or 2 11/20/2022 Q3: How often do you have si x or more drinks on one occasion? Less than monthly 11/20/2022 PHQ-2 Answer Date Recorded PHQ-2 Total Score (If total score is 3 or more points, staff should administer the PHQ-9) 0 05/07/2021 Personal Safety Answer Date Recorded Have you ever been in or are you currently in a harmful physical or emotional relationship or is someone making you feel afraid or unsafe? Denies 12/05/2022 Comments No Sex and Gender Information Value Date Recorded Sex Assigned at Not on file Legal Sex Female 10:23 AM NUTRITION INTERNSHIP Gender Identity Not on file Sexual Orientation Not on file Obstetrics History Last Filed Vital Signs Vital Sign Reading Time Taken Comments Blood Pressure 104/56 07/21/2024 11:00 AM CDT Pulse 72 07/21/2024 11:00 AM CDT Temperature 36 C (96.8 F) 05/02/2024 11:19 AM NUTRITION INTERNSHIP Respiratory Rate 16 10/28/2023 11:28 AM CDT Oxygen Saturation 96% 07/21/2024 11:00 AM CDT Inhaled Oxygen Concentration - - Weight 83 kg (183 lb) 07/21/2024 11:00 AM CDT Height 162.6 cm (5' 4.02 ) 07/21/2024 11:00 AM C DT Body Mass Index 31.39 07/21/2024 11:00 AM CDT Plan of Treatment Health Maintenance Due Date Last Done Comments Hepatitis C Screening 1945 Osteoporosis Screening-Bone Density Scan 1945 DTaP/Tdap/Td Vaccine (1 - Tdap) 10/04/1958 Hepatitis B Screening 10/04/1965 Well Visit 65+ 10/04/2012 Zoster Vaccine (3 of 3) 11/02/2017 09/07/2017, 12/28 Depression Screening 05/07/2022 05/07/2021, 05/31/2020, 09/27/2019, Additional history exists Fall Risk Assessment 11/21/2023 11/20/2022 eGFR 12/06/2023 12/05/2022, 10/21, 08/31/2021, Additional history exists Albumin Creatinine Ratio, Urine 02/27/2024 02/26/2023, 01/09/2022, 06/01/2020 Hemoglobin A1C 03/24/2024 09/22/2023, 120 09/2022, 11/04/2022, Additional history exists Foot Exam 09/21/2024 09/22/2023, 04/2022, 09/12/2021, Additional history exists Influenza Vaccine (Season Ended) 2024 01/04/2018, 12/04/2016, 12/31/2015, Additional history exists Lipid Panel 07/21/2025 07/21/2024, 04/2022, 12/09/2021, Additional history exists Dilated Eye Exam 11/24/2025 11/25/2023, , 05/15/2020, Additional history exists Pneumococcal vaccine 65+ Completed 09/07/2017, 07/22 Procedures Procedure Name Priority Date/Time Associated Diagnosis Comments POCT LIPID PANEL Routine 07/21/2024 11:5 7 AM CDT Coronary artery disease involving [place] coronary artery of [place] heart without angina pectoris Hyperlipidemia associated with type 2 diabetes mellitus (HCC) PERAZA VISUAL FIELD - OU - BOTH EYES Routine 05/03/2024 10:08 AM NUTRITION INTERNSHIP Glaucoma suspect of both eyes POCT HEMOGLOBIN A1C Routine 09/22/2023 2 :11 PM CDT Type 2 diabetes mellitus with hyperglycemia, without long-term current use of insulin (HCC) ALBUMIN CREATININE RATIO, URINE Routine 02/26/2023 10:53 AM NUTRITION INTERNSHIP Type 2 diabetes mellitus with hyperglycemia, without long-term current use of insulin (HCC) EGFR STAT 12/05/2022 6:29 PM CDT DIABETIC EYE EXAM Routine 05/15/2020 from Last 3 Months or Most Recently Relevant to Health Maintenance Results * POCT lipid panel (07/21/2024 11:57 AM CDT) Cholesterol, POC 104 <200 MG/DL HDL, POC 41 >=40 mg/dL Triglycerides, POC 119 <=149 mg/dL LDL Cholesterol POC 39 <=129 mg/dL Chol/HDL Ratio, POC 0.9 NONE Non-HDL Cholesterol, POC 63 NONE mg/dL Cholesterol Total, POC 104 30 - 199 mg/dL Capillary blood 07/21/2024 1 1:57 AM CDT Des Charles MD POINT OF CARE TEST ORDERA BLES Final Result * Peraza Visual Field - OU - Both Eyes (05/03/2024 10:08 AM NUTRITION INTERNSHIP) Pathologist [facility] Pattern Deviation OS 3.63 dB CONTINUUM Pattern Deviation OD 1.70 dB CONTINUUM Mean Deviation OS -2.36 dB CONTINUUM Mean Deviation OD -1.62 dB CONTINUUM Anatomical Region Laterality Modality Head Other Narrative 05/03/2024 1:39 PM NUTRITION INTERNSHIP Right Eye Fixation was good. Cooperation was good. Reliability was good. Findings include irregular, non-specific defects, enlarged blind spot. Mean Deviation was -1.62 dB. Pattern Deviation was 1.70 dB. Left Eye Fixation was good. Cooperation was good. Reliability was good. Findings include enlarged blind spot. Mean Deviation was -2.36 dB. Pattern Deviation was 3.63 dB. us Agnes Gupta OD OPHTH VISUAL FIELD Final R esult * (ABNORMAL) POCT hemoglobin A1c (09/22/2023 2:11 PM CDT) Hemoglobin A1C, POC 6.2 % Blood 09/22/2023 2:11 PM CDT us Alta Mendez NP POINT OF CARE TEST ORDERA BLES Final Result * (ABNORMAL) Albumin Creatinine Ratio, Urine (02/26/2023 10:53 AM NUTRITION INTERNSHIP) Albumin Ur 82.8 mg/L [facility] Comment: Interpretive Data No reference range established. Current interpretive data was last revised 2018. Creatinine Ur 173.8 mg/dL [facility] Comment: Interpretive Data No reference range established. Current interpretive data was last revised 2018. Albumin Creatinine Ratio, Ur 48(H) 1 - 29 mg/g [facility]MA Urine 02/26/2023 10:5 3 AM NUTRITION INTERNSHIP 02/26/2023 2:11 PM NUTRITION INTERNSHIP Alta Mendez NP LAB URINE ORDERABLES Danielle l Result [facility] [address] Department [place] [address] * eGFR (12/05/2022 6:29 PM CDT) eGFR 65 mL/min/1. 73 m2 [facility] Comment: Interpretive Data Reference Interval Normal >/= 90 mL/min/1.73m2 Mildly decreased* 60 - 89 mL/min/1.73m2 Mildly to moderately decreased 45 - 59 mL/min/1.73m2 Moderately to severely decreased 30 - 44 mL/min/1.73m2 Severely decreased 15 - 29 mL/min/1.73m2 Kidney Failure < 15 mL/min/1.73m2 *Relative to young adult level Estimated glomerular filtration rate is determined by the 2020 CKD-EPI equation recommended by the National Kidney Foundation (A Unifying Approach to GFR Estimation: Recommendations of the NKF-ASK Task Force on Reassessing the Inclusion of Race in Diagnosing Kidney Disease, JASN 2020). The CKD-EPI equation should not be used for patients with unstable renal function and has not been validated in children and those over 70. Current interpretive data was last reviewed 2021. Blood 12/05/2022 6:29 PM CDT 12/05/2022 6:39 PM CDT River Zhang MD LAB BLOOD ORDERABLES Fin al Result [facility] [address] Department [place] [address] * Diabetic Eye Exam (05/15/2020) Historical Provider HEALTH MAINTENANCE Final Result from Last 3 Months or Most Recently Relevant to Health Maintenance Insurance MEDICARE [facility] MEDICARE [facility] FEDERAL Care Teams Feeder Switchboard Operator Relationship Specialty Start Date End Date Toney Davis MD PCP - General 06/20/16 [place] [address] [facility] [address] [place] [address] Consulting Physician Urology 09/12/21
--- OUTSIDE RECORDS SUMMARY | 2024-07-26 00:32 | XMS_ITS | Clinical Summary ---
Author Organization [facility] Address [address] [place] [id number] Care Team Providers Care Quill Fixer Name Role Phone Unavailable Primary Care Provider Unavailabl e Social History Tobacco Use Types Packs/Day Years Used Date Smoking Tobacco: Never Assessed Comments Unknown Sex and Gender Information Value Date Recorded Sex Assigned at Not on file Legal Sex Female 7:37 PM CDT Gender Identity Not on file Sexual Orientation Not on file Plan of Treatment Health Maintenance Due Date Last Done Comments Hepatitis C 10/04/1963 DTaP, Tdap and Td Vaccines ( 1 - Tdap) 10/04/1966 Pneumococcal Vaccine: 50+ Ye ars (1 of 1 - PCV) 10/04/1997 Zoster Vaccines (1 of 2) 10/04/1997 Dexa Scan (General) 10/04/2012 RSV Immunization or 60+ Years (1 - 1-dose 75+ series) 10/04/2022 COVID-19 Vaccine (2023-2 5 season) 2023 Meningococcal B Vaccine Aged Out No l onger eligible based on patient's age to complete this topic Meningococcal Vaccine Aged Out No nicolas monae eligible based on patient's age to complete this topic RSV Immunizations Under 20 Months Aged Out No longer eligible based on patient's age to complete this topic
--- OUTSIDE RECORDS SUMMARY | 2024-07-26 00:32 | XMS_ITS | Clinical Summary ---
Author Organization [facility] Care Team Providers Care Deck Officer Name Role Phone Unavailable Primary Care Provider Unavailabl e Social History Tobacco Use Types Packs/Day Years Used Date Smoking Tobacco: Never Assessed Comments Unknown Sex and Gender Information Value Date Recorded Sex Assigned at Not on file Legal Sex Female 10:08 AM FREE LANCE MODEL Gender Identity Not on file Sexual Orientation Not on file Plan of Treatment Health Maintenance Due Date Last Done Comments DEXA Bone Density 1945 Hepatitis C Virus (HCV) Screening 1945 TdaP Immunization 1945 Colonoscopy 10/04/1992 Colorectal Cancer Screening 10/04/1992 Cologuard 10/04/1997 Immunochemical Fecal Occult Blood 10/04/1997 Pneumococcal Immunization (5 0+ years) (1 of 1 - PCV) 10/04/1997 Zoster Immunization (1 of 2) 10/04/1997 Respiratory Syncytial Virus (RSV) Immunization (Adult) (1 - 1-dose 75+ series) 10/04/2022 Influenza Immunization (#1) 2023 SARS-COV-2 Immunization ( season) 2023 Hepatitis B Immunization Aged Out No longer eligible based on patient's age to complete this topic Meningococcal Immunization (ACWY) Aged Out No longer eligible based on patient's age to complete this topic Rotavirus Immunization Aged Out No lo nger eligible based on patient's age to complete this topic
--- OUTSIDE RECORDS SUMMARY | 2024-07-26 00:32 | XMS_ITS | CONTINUITY OF CARE DOCUMENT ---
Author Name mary hernandez Address Unknown Organization [facility] Address [address] [place] [address] [address] [place] [address] Phone [phone] Care Team Providers Care Scruff Worker Name Role Phone mary hernandez Unavailable Unavailable
--- OUTSIDE RECORDS SUMMARY | 2024-07-26 00:32 | XMS_ITS | Continuity of Care Document ---
Author Organization [facility] Address [address] [place] [address] [address] [place] [address] Phone Care Team Providers Care Travel Manager Name Role Phone Sanjana Howard Unavailable Unavailable Advance Directives Directive Yes / No Effective Date File Name No Information Encounters Encounter Description Practice Location Reason(s) For Visit Diagnoses Date Provider Providers Copied on Encounter formerly [facility], [address] [place], [place], [id number], [place] tel:[phone] [facility] [place] No Information [phone] Anita Allan. [address] [facility] , [address], [place], [address], [place]. tel:[phone] Family History Family Member Type Diagnosis Age At Onset No Information Payers Payer name Insurance type Covered green party ID Authoriza tion(s) No Information Social History Type Description Quantity Date Captured Comments Sex Female Smoking Status No Information Chief Complaint And Reason For Visit No Information Reason For Referral Reason For Referral No Information History Of Present Illness Encounter Date Complaint History Of Prese nt Illness No Information Functional Status Date Functional Assessmen t No Information Instructions Date Instruction Additional Infor mation No Information Assessments Type Assessment Date No Information Patient Care Teams Name Effective Dates (start - stop) Status Members No Information
--- OUTSIDE RECORDS SUMMARY | 2024-07-26 00:32 | XMS_ITS | Referral Summary ---
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, [address] [facility] [place] [address] Agnes Gupta, RAFAELA Glaucoma suspect of both eyes (Primary Dx); Diabetes mellitus type 2 without retinopathy (HCC) 05/03/2024 9:30 AM BENZENE WASHER OPERATOR Imaging Exam [facility] Ophthalmology [address] [place] [id number] Glaucoma suspect of both eyes 05/02/2024 11:30 AM BENZENE WASHER OPERATOR Office Visit [facility] Pulmonary at [address] [place] [address] Alexx Dupree MD Pulmonary nodule (Primary Dx); Centrilobular emphysema (HCC); Chronic cough 04/29/2024 Orders Only [facility] Ophthalmology [address] 6th [address], [address] [place] [address] Agnes Gupta, OD Glaucoma suspect of both eyes (Primary Dx) from Last 3 Months Allergies Active Allergy Reactions Criticality Noted Date Comments Bacitracin Other (See comments) Low Eye redness/irritation Benzalkonium Other (See comments) Low Eye redness/irritation Dapagliflozin Other (See comments) Low 04/24/2022 Recurrent vulvovaginitis Gramicidin D Unknown Low Hydrocortisone Other (See comments) Low Eye redness/irritation Neomycin Blisters High Fwzxnemh-Yujougpohu-Tlq ymyxin Blisters High Polymyxin B Blisters High [...] long-term current use of insulin ([facility]) Take 1 tablet by mouth [...] long-term current use of insulin ([facility]) TAKE 1 TABLET BY MOUTH [...] long-term current use of insulin ([facility]) Take 1 tablet by mouth once daily with breakfast 90 tablet 07/08/19 25 Active metFORMIN (GLUCOPHAGE) 500 mg tabletIndicati ons:Type 2 diabetes mellitus with hyperglycemia, without long-term current use of insulin ([facility]) Take 1 tablet by mouth [...] 05/15/2020 Assessment & Plan (05/15/2020 2:04 PM BENZENE WASHER OPERATOR): Minimal d Rx - demonstrated with trial frame, no significant improvement. Cont without glasses. Multinodular goiter 01/04/2019 Assessment & Plan (09/22/2023 2:49 PM CDT): Chronic problem. US thyroid completed 10/2022 w/no changes. TFTs completed 10/2022 also. Assessment & Plan (02/26/2023 10:47 AM BENZENE WASHER OPERATOR): Chronic problem. US thyroid completed 10/2022 w/no [...] 05/11/2018 Assessment & Plan (05/03/2024 1:37 PM BENZENE WASHER OPERATOR): Based on CDR Normal intraocular pressure (IOP) Low risk at this time Monitor Assessment & Plan (11/25/2023 4:56 PM CDT): Based on CDR, large myopic disks +Fhx (father) NTG suspect, normal IOPs Assessment & Plan (05/15/2020 2:03 PM BENZENE WASHER OPERATOR): Low risk, +anomolous, myopic disks both eyes (OU). OCT and [place] visual field (HVF) relatively stable. Low IOPs.Pt ed. Monitor. Assessment & Plan (05/11/2018 11:53 AM BENZENE WASHER OPERATOR): Full HVF. Large CDR, previously stable OCTs. Great IOPs off drops. OK to monitor off drops, yearly DFEx/HVF. Diabetes mellitus type 2 without retinopathy Assessment & Plan (05/03/2024 1:37 PM BENZENE WASHER OPERATOR): Annual DFEx (11/2024) Assessment & Plan (11/25/2023 [...] 04/24/2022 Assessment & Plan (05/15/2020 2:03 PM BENZENE WASHER OPERATOR): Pt ed. Stressed BG control (HbA1C<7) to reduce the risk for diabetic ocular complications. Lab Results Component Value Date HGBA1C 7.3 09/27/2019 Assessment & Plan (05/11/2018 11:54 AM BENZENE WASHER OPERATOR): Annual DFEx next due 04/2019. Emphasized good BG control. Last A1C near 7.0 per pt. Pseudophakia of both eyes 05/11/2018 Overview (05/15/2020): MFL IOLs OU Assessment & Plan (05/03/2024 1:37 PM BENZENE WASHER OPERATOR): Patient was educated on the intraocular lens (IOL) status. Follow. Assessment & Plan (11/25/2023 4:55 PM CDT): Patient was educated on the intraocular lens (IOL) status. Follow. Release Rx for DVO glasses Assessment & Plan (07/10/2022 5:19 PM CDT): excellent unaided vision with multifocal IOL Assessment & Plan (05/15/2020 2:04 PM BENZENE WASHER OPERATOR): Pt ed on intraocular lens (IOL) status. Follow. Hyperlipidemia associated with type 2 diabetes danni gonzalez 11/24/2017 Assessment & Plan (09/22/2023 2:49 PM CDT): Chronic problem. LDL at goal on current Rosuvastatin 20mg. Last lipid panel: 01/22/23 LDL=29, UT=063. Assessment & Plan (02/26/2023 10:18 AM BENZENE WASHER OPERATOR): Chronic problem. LDL at goal on current Rosuvastatin 20mg. Last lipid panel: 01/22/23 LDL=29, BR=079. Assessment & Plan (11/04/2022 12:53 PM CDT): Chronic, well controlled Low fat Low cholesterol diet Exercise Continue statin therapy with rosuvastatin Assessment & Plan (04/24/2022 10:24 AM BENZENE WASHER OPERATOR): Chronic , well controlled Continue Rosuvastatin Assessment & Plan (01/09/2022 10:07 AM CDT): Chronic problem. On statin therapy, no changes. Assessment & Plan (09/12/2021 1:13 PM CDT): Chronic problem. On statin therapy, no changes. Assessment & Plan (05/07/2021 3:30 PM BENZENE WASHER OPERATOR): Chronic, well controlled Continue current meds Assessment [...] Pravastatin Assessment & Plan (05/31/2020 4:06 PM BENZENE WASHER OPERATOR): Goal of treatment , LDL cholesterol less [...] therapy Assessment & Plan (03/29/2019 9:54 AM BENZENE WASHER OPERATOR): Goal of treatment , LDL cholesterol less [...] glimeperide Assessment & Plan (04/24/2022 10:24 AM BENZENE WASHER OPERATOR): Chronic , well controlled, with some weight [...] exam. Assessment & Plan (05/07/2021 3:30 PM BENZENE WASHER OPERATOR): Hba1c was Lab Results Component Value Date [...] Glimepiride Assessment & Plan (05/31/2020 4:06 PM BENZENE WASHER OPERATOR): Hba1c was Lab Results Component Value Date [...] Metformin Assessment & Plan (03/29/2019 9:54 AM BENZENE WASHER OPERATOR): Hba1c was Lab Results Component Value Date [...] goal hba1c is under 7.0 to prevent terminal gauger diabetes complications ( eye , kidney and [...] office visit. Coronary artery disease invo lving tribal coronary artery of tribal heart without angina pectoris 02/28/2014 Overview (06/26/2016): Coronary arteriosclerosis in tribal artery Assessment & Plan (12/03/2020 1:37 PM [...] infection. Assessment & Plan (02/26/2023 10:39 AM BENZENE WASHER OPERATOR): Chronic problem. Not at goal & worsening. [...] update MA/Cr today. Verified that she uses [employer]. Aware to check results/results letter in [employer]. Will contact by phone if needed. Strive [...] . Assessment & Plan (05/19/2017 10:09 AM BENZENE WASHER OPERATOR): Hba1c was 6.9 today, indicating adequate DM [...] made. Assessment & Plan (05/19/2017 10:09 AM BENZENE WASHER OPERATOR): Goal of treatment , LDL cholesterol less [...] daily Assessment & Plan (02/26/2023 10:17 AM BENZENE WASHER OPERATOR): Chronic problem. Controlled on current Lisinopril 2.5mg daily, propranolol LA 60mg daily Assessment & Plan (04/24/2022 10:25 AM BENZENE WASHER OPERATOR): chronic well controlled continue Lisinopril Assessment & Plan (01/09/2022 10:06 AM CDT): Controlled on current medications, no changes. Assessment & Plan (09/12/2021 1:13 PM CDT): Controlled on current medications, no changes. Assessment & Plan (05/07/2021 3:29 PM BENZENE WASHER OPERATOR): Chronic, well controlled Continue current meds Assessment [...] Lisinopril Assessment & Plan (05/31/2020 4:06 PM BENZENE WASHER OPERATOR): Goal blood pressure is less than 140/85 [...] ARB Assessment & Plan (03/29/2019 9:54 AM BENZENE WASHER OPERATOR): Goal blood pressure is less than 140/85 [...] ARB Assessment & Plan (05/19/2017 10:09 AM BENZENE WASHER OPERATOR): Goal blood pressure is less than 140/85 [...] disease 09/07/2009 After-cataract with vision obscured 09/07/2009 Social History Tobacco Use Types Packs/Day Years [...] on file Legal Sex Female 10:23 AM BENZENE WASHER OPERATOR Gender Identity Not on file Sexual Orientation Not on file Last Filed Vital Signs Vital Sign Reading Time Taken Comments Blood Pressure 104/56 07/21/2024 11:00 AM CDT Pulse 72 07/21/2024 11:00 AM CDT Temperature 36 C (96.8 F) 05/02/2024 11:19 AM BENZENE WASHER OPERATOR Respiratory Rate 16 10/28/2023 11:28 AM CDT Oxygen Saturation 96% 07/21/2024 11:00 AM CDT Inhaled Oxygen Concentration - - Weight 83 kg (183 lb) 07/21/2024 11:00 AM CDT Height 162.6 cm (5' 4.02 ) 07/21/2024 11:00 AM C DT Body Mass Index 31.39 07/21/2024 11:00 AM CDT Plan of Treatment Not on file Procedures Procedure Name Priority Date/Time Associated Diagnosis Comments POCT LIPID PANEL Routine 07/21/2024 11:5 7 AM CDT Coronary artery disease involving tribal coronary artery of tribal heart without angina pectoris Hyperlipidemia associated with type 2 diabetes mellitus (HCC) PERAZA VISUAL FIELD - OU - BOTH EYES Routine 05/03/2024 10:08 AM BENZENE WASHER OPERATOR Glaucoma suspect of both eyes POCT HEMOGLOBIN A1C Routine 09/22/2023 2 :11 PM CDT Type 2 diabetes mellitus with hyperglycemia, without long-term current use of insulin (HCC) ALBUMIN CREATININE RATIO, URINE Routine 02/26/2023 10:53 AM BENZENE WASHER OPERATOR Type 2 diabetes mellitus with hyperglycemia, without [...] OU - Both Eyes (05/03/2024 10:08 AM BENZENE WASHER OPERATOR) Pattern Deviation OS 3.63 dB CONTINUUM Pattern Deviation OD 1.70 dB CONTINUUM Mean Deviation OS -2.36 dB CONTINUUM Mean Deviation OD -1.62 dB CONTINUUM Anatomical Region Laterality Modality Head Other Narrative 05/03/2024 1:39 PM BENZENE WASHER OPERATOR Right Eye Fixation was good. Cooperation was good. Reliability was good. Findings include irregular, non-specific defects, enlarged blind spot. Mean Deviation was -1.62 dB. Pattern Deviation was 1.70 dB. Left Eye Fixation was good. Cooperation was good. Reliability was good. Findings include enlarged blind spot. Mean Deviation was -2.36 dB. Pattern Deviation was 3.63 dB. Agnes Gupta OD OPHTH VISUAL FIELD Final R esult * (ABNORMAL) POCT hemoglobin A1c (09/22/2023 2:11 PM CDT) Hemoglobin A1C, POC 6.2 % Blood 09/22/2023 2:11 PM CDT Alta Mendez NP POINT OF CARE TEST ORDERA BLES Final Result * (ABNORMAL) Albumin Creatinine Ratio, Urine (02/26/2023 10:53 AM BENZENE WASHER OPERATOR) Albumin Ur 82.8 mg/L [facility] Comment: Interpretive Data No reference range established. Current interpretive data was last revised 2018. Creatinine Ur 173.8 mg/dL [facility] Comment: Interpretive Data No reference range established. Current interpretive data was last revised 2018. Albumin Creatinine Ratio, Ur 48(H) 1 - 29 mg/g PUMA Urine 02/26/2023 10:5 3 AM BENZENE WASHER OPERATOR 02/26/2023 2:11 PM BENZENE WASHER OPERATOR us Alta Mendez DEVELOPMENT EXPERT LAB URINE ORDERABLES Danielle l Result Performing Organization Address [facility]/ZIP Co de Phone Number [facility] [address] Department [employer] [place], [place] [id number] * eGFR (12/05/2022 6:29 PM CDT) eGFR 65 mL/min/1. 73 m2 [facility] Comment: Interpretive Data Reference Interval Normal >/= [...] MD LAB BLOOD ORDERABLES Fin al Result Performing Organization Address City/[facility]/ZIP Co de Phone Number [facility] [address] [place] [address] * Diabetic Eye Exam (05/15/2020) us Historical Provider MD HEALTH MAINTENANCE Final Result from Last 3 Months or Most Recently Relevant to Health Maintenance Insurance MEDICARE [facility] MEDICARE [facility] [employer] Care Teams [place] Agent Relationship Specialty Start Date End Date Toney Davis MD PCP - General 06/20/16 [place] [id number] [address] Consulting Physician Urology 09/12/21
[2024-07-26 08:28] VITALS: BP 128/67; PULSE 80; RESP 18; TEMP 36.2; O2SAT 97
[2024-07-26] MEDS: LACTATED RINGERS 1,000 ML 150 ML IV CONT (08:38)
[2024-07-26 08:40] LABS: Glucose Point of Care 99 mg/dl (65-105)
--- NOTE | 2024-07-26 08:42 | WPDANESEPPF ---
Anes - Initial Pre Proc Eval Procedure: Operation Date: 07/26/24 09:15 Proposed Procedures p Esophagogastroduodenoscopy - Charlie Banks MD Date/Time: 07/26/24 08:42 Surgeon: Charlie Banks MD Pre Op Diagnosis: GERD Patient Data Age: 78 Gender: F Height: 1.63 m Weight: 83.1 kg Last Vital Signs Temp 97.1 F L 07/26/24 08:28 Pulse 80 07/26/24 08:28 Resp 18 07/26/24 08:28 BP 128/67 07/26/24 08:28 Pulse Ox 97 07/26/24 08:28 O2 Del Method Room Air 07/26/24 08:28 Allergies Allergy/AdvReac Type Severity Reaction Status Date / Time neomycin Allergy Intermediate Rash Verified 07/26/24 08:27 atorvastatin Allergy Unknown Unknown Verified 07/26/24 08:27 bacitracin Allergy Unknown Rash Verified 07/26/24 08:27 ezetimibe Allergy Unknown Unknown Verified 07/26/24 08:27 polymyxin B Allergy Unknown Rash Verified 07/26/24 08:27 venlafaxine Allergy Unknown Unknown Verified 07/26/24 08:27 Home Medications ?Medication ?Instructions ?Recorded ?Confirmed ?Type propranolol 60 mg capsule,24 120 mg (2 x 60 mg) PO DAILY #180 06/27/19 07/26/24 Rx hr,extended release caps aspirin 81 mg tablet,delayed 81 mg PO DAILY 12/19/19 07/26/24 History release (Adult Low Dose Aspirin) lisinopril 5 mg tablet 2.5 mg PO DAILY 12/19/19 07/26/24 History metformin 500 mg tablet 500 mg PO DAILY 12/19/19 07/26/24 History albuterol sulfate 90 mcg/actuation 1 inh inhalation QID PRN Shortness 02/22/21 07/13/24 Rx aerosol inhaler Of Breath #8.5 grams glimepiride 2 mg tablet 2 mg PO QAM 09/09/21 07/26/24 History montelukast 10 mg tablet 10 mg PO DAILY #90 tabs 01/19/23 07/13/24 Rx (Singulair) omeprazole 40 mg capsule,delayed 40 mg PO DAILY #30 caps 06/28/24 07/26/24 Rx release rosuvastatin 20 mg tablet 20 mg PO DAILY 07/13/24 07/26/24 History semaglutide 0.25 mg or 0.5 mg (2 0.5 mg subcut WEEKLY 07/13/24 07/26/24 History mg/3 mL) subcutaneous pen injector (Ozempic) Laboratory Tests 07/26/24 08:37 POC Capillary Glucose 99 mg/dl (65-105) Patient hx anesthesia problems: none Family hx anesthesia problems: none Results Review: All pre-operative results and documents have been reviewed as part of the pre-operative evaluation. [facility] Past Medical History Medical History (Updated 06/28/24 @ 15:55 by Susanne Cunningham APRN) GERD (gastroesophageal reflux disease) BMI 32.0-32.9,adult Diabetes Hyperlipidemia Atherosclerotic heart disease of [place] coronary artery with angina pectoris Chronic obstructive pulmonary disease, unspecified Family History Family History Sibling Family history of premature coronary heart disease Hypertension Family history of diabetes mellitus in first degree relative Grandparent Carcinoma of colon Diabetes mellitus Father Acute myocardial infarction Mother No problems noted. 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 Informed Consent: The patient's anesthetic plan and its attendant risks and benefits were discussed with the patient/family/POA. Questions were solicited and answers provided to the satisfaction of the patient/family/POA.
--- NOTE | 2024-07-26 09:11 | P.HP_ITS ---
History of Present Illness History of Present Illness Consent: Risks, benefits, and alternatives have been discussed and questions answered. Patient agrees to proceed with procedure. Chief complaint: GERD Narrative: Amparo Palacios is a 78 year old female with gerd despite ppi, here for first egd Review of Systems Review of Systems: All systems reviewed & are unremarkable except as noted in HPI and below PMFSH Past Medical History Medical History (Updated 06/28/24 @ 15:55 by Susanne Cunningham APRN) GERD (gastroesophageal reflux disease) BMI 32.0-32.9,adult Diabetes Hyperlipidemia Atherosclerotic heart disease of [place] coronary artery with angina pectoris Chronic obstructive pulmonary disease, unspecified Family History Family History Sibling Family history of premature coronary heart disease Hypertension Family history of diabetes mellitus in first degree relative Grandparent Carcinoma of colon Diabetes mellitus Father Acute myocardial infarction Mother No problems noted. 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 Gender identity (if verbalized by the patient): Female Spiritual care concerns: No Meds Home Medications and Allergies Home Medications ?Medication ?Instructions ?Recorded ?Confirmed ?Type propranolol 60 mg capsule,24 120 mg (2 x 60 mg) PO DAILY #180 06/27/19 07/26/24 Rx hr,extended release caps aspirin 81 mg tablet,delayed 81 mg PO DAILY 12/19/19 07/26/24 History release (Adult Low Dose Aspirin) lisinopril 5 mg tablet 2.5 mg PO DAILY 12/19/19 07/26/24 History metformin 500 mg tablet 500 mg PO DAILY 12/19/19 07/26/24 History albuterol sulfate 90 mcg/actuation 1 inh inhalation QID PRN Shortness 02/22/21 07/13/24 Rx aerosol inhaler Of Breath #8.5 grams glimepiride 2 mg tablet 2 mg PO QAM 09/09/21 07/26/24 History montelukast 10 mg tablet 10 mg PO DAILY #90 tabs 01/19/23 07/13/24 Rx (Singulair) omeprazole 40 mg capsule,delayed 40 mg PO DAILY #30 caps 06/28/24 07/26/24 Rx release rosuvastatin 20 mg tablet 20 mg PO DAILY 07/13/24 07/26/24 History semaglutide 0.25 mg or 0.5 mg (2 0.5 mg subcut WEEKLY 07/13/24 07/26/24 History mg/3 mL) subcutaneous pen injector (Diagnose.me) Allergies Allergy/AdvReac Type Severity Reaction Status Date / Time neomycin Allergy Intermediate Rash Verified 07/26/24 08:27 atorvastatin Allergy Unknown Unknown Verified 07/26/24 08:27 bacitracin Allergy Unknown Rash Verified 07/26/24 08:27 ezetimibe Allergy Unknown Unknown Verified 07/26/24 08:27 polymyxin B Allergy Unknown Rash Verified 07/26/24 08:27 venlafaxine Allergy Unknown Unknown Verified 07/26/24 08:27 Vital Signs Vital Signs - 24 hr 07/26/24 08:28 Temperature 97.1 F L Pulse Rate 80 Respiratory Rate 18 Blood Pressure 128/67 Pulse Oximetry 97 Oxygen Delivery Room Air Exam Const: General: comfortable and no acute distress HENMT: Face/Nose/Sinus: Normal nares present Eyes: General: appearance normal, both eyes and all related structures Neck: Neck: no JVD Resp: Auscultation: clear to auscultation bilaterally Cardio: Rate: regular rate Rhythm: regular rhythm GI: Inspection: non-distended GI Palp: Yes Soft to palpation Skin: General skin exam: normal color Neuro: General: gait normal Speech: normal speech Extrem: General: normal to inspection Psych: Mental Status: mental status grossly normal Assessment and Plan Assessment and plan (1) GERD (gastroesophageal reflux disease): Code(s): K21.9 - Gastro-esophageal reflux disease without esophagitis Status: Acute Assessment and Plan: egd with bx
[2024-07-26 09:32] VITALS: BP 114/69; PULSE 75; RESP 26; O2SAT 97
[2024-07-26 09:42] VITALS: BP 126/78; PULSE 73; RESP 23; O2SAT 97
[2024-07-26 09:52] VITALS: BP 130/61; PULSE 75; RESP 25; O2SAT 99
== END 2024-07-26 09:59 | disposition home or self-care (01) ==
PROVIDERS: PCP Family Medicine; Referring Provider Nurse Practitioner Adult Health; Visit Provider Internal Medicine Gastroenterology
PROC: 0DJ08ZZ Inspection of Upper Intestinal Tract, Via Natural or Artificial Opening Endoscopic (ICD-10-PCS; CPT 43239; principal; 2024-07-26 09:15)
DX: K21.9 Gastro-esophageal reflux disease without esophagitis (principal); K29.50 Unspecified chronic gastritis without bleeding; K44.9 Diaphragmatic hernia without obstruction or gangrene; K31.7 Polyp of stomach and duodenum; Z87.891 Personal history of nicotine dependence; E66.9 Obesity, unspecified; Z68.31 Body mass index [BMI] 31.0-31.9, adult; E11.9 Type 2 diabetes mellitus without complications
CPT/HCPCS: 43239; 82948; 88305; J2003; J2704; J7120